=== PATIENT | female | born 2000 | race African-American/Black ===

== ENCOUNTER 2021-05-21 01:50 | Emergency (ER) | payer SELFPAY ==
--- NOTE | 2021-05-21 01:56 | ED Physician Documentation ---
PD HPI SKIN - Stated complaint Stated Complaint: HIVES - History obtained from History obtained from: Patient - History of Present Illness Timing - onset: How many hours ago (few), Today Timing - duration: Hours (few) Timing - details: Abrupt onset, Still present Location: Face, Neck, RUE, LUE. No: Bodywide Quality / character: Itchy, Swelling (patchy areas of swelling and tenderness neck/face/arms. Had dyed hair earlier in the day without symptoms then. No new meds/foods/etc. Recent new sexual partner few days ago without discharge nor vaginal pain. She presumes is related to hair dye. Itchy without hives on scalp.) Improved by: Benadryl (but only moderately better after an hour.) Associated symptoms: Facial swelling. No: Fever, Myalgias, Joint pain, Headache, Dyspnea, N/V/D Contributing factors: Other (dyed hair earlier in the day.). No: Exposed to me dication, Exposed to food Similar symptoms before: Has not had sx before Recently seen: Not recently seen Review of Systems Constitutional: denies: Fever, Chills Nose: denies: Rhinorrhea / runny nose, Congestion Throat: denies: Sore throat Respiratory: denies: Dyspnea, Cough, Wheezing GI: denies: Nausea, Vomiting, Diarrhea : denies: Dysuria, Discharge Skin: reports: Rash (hives the past few hours) PD PAST MEDICAL HISTORY - Past Medical History Past Medical History: No Cardiovascular: None Respiratory: None Neuro: None Endocrine/Autoimmune: None - Present Medications Home Medications: Ambulatory Orders Medication Instructions Recorded Confirmed Albuterol 2.5 mg INH Q4H PRN 05/21/21 05/21/21 Cetirizine [ZyrTEC] 10 mg PO BID #15 tablet 05/21/21 dexAMETHasone [Decadron] 4 mg PO DAILY #5 tablet 05/21/21 - Allergies Allergies/Adverse Reactions: Allergies Allergy/AdvReac Type Severity Reaction Status Date / Time No Known Drug Allergies Allergy Verified 05/21/21 02:00 PD ED PE NORMAL - Vitals Vital signs reviewed: Yes - General General: Alert and oriented X 3, Well developed/nourished - HEENT HEENT: Moist mucous membranes, Pharynx benign (no noted edema), Other (hair is primary red color. Mild redness of scalp generally. Face/back of neck and arms with patches of slightly raised swelling c/w hives. No vesicles. ) - Neck Neck: Supple, no meningeal sign, No adenopathy - Cardiac Cardiac: RRR, No murmur - Respiratory Respiratory: Clear bilaterally - Female Female : Deferred - Derm Derm: Normal color, Warm and dry - Neuro Neuro: Alert and oriented X 3, No motor deficit, Normal speech Results - Vitals Vitals: Vital Signs - 24 hr 05/21/21 05/21/21 01:58 02:38 Temperature 36.9 C 37.2 C Heart Rate 75 68 Respiratory 16 16 Rate Blood Pressure 132/80 H 117/73 O2 Saturation 99 100 Oxygen O2 Source Room air - Labs Labs: Laboratory Tests 05/21/21 02:29 C. glabrata (PCR) NEGATIVE C. krusei (PCR) NEGATIVE Qi species DNA NEGATIVE T. vaginalis (PCR) POSITIVE A Bact Vaginosis (PCR) POSITIVE A PD MEDICAL DECISION MAKING - ED course Complexity details: considered differential (area of hives would related to area closer to hair dye. Presume that is it. She is concerned about STDs without vaginal symptoms. Can have her self-swab. ), d/w patient Departure - Departure Disposition: 01 Home, Self Care Clinical Impression: Urticaria, acute, Concern about STD in female without diagnosis Condition: Stable Record reviewed to determine appropriate education?: Yes Instructions: ED Allergic Reaction General Other Prescriptions: dexAMETHasone [Decadron] 4 mg PO DAILY #5 tablet Cetirizine [ZyrTEC] 10 mg PO BID #15 tablet Comments: Use the Decadron steroid daily for several more days to outlast the reaction. Cetirizine antihistamine twice daily for a week or so. This is a long-acting antihistamine. Add Benadryl every 6 hours if needed for hives/itching in the short-term. You can use 25 to 50 mg every 6 hours if needed. I would anticipate improvement into tomorrow/later today and resolution over the next day or 2. Your testing for STIs will result in a day and will call you if there are any positive findings. You can also look up the results on the patient portal. Discharge Date/Time: 05/21/21 02:44
[2021-05-21] MEDS ORDERED: FAMOTIDINE 20 MG TABLET PO STA (02:07)
[2021-05-21] MEDS ORDERED: CHERRY SYRUP 10 ML UDC PO ONE (02:07)
[2021-05-21] MEDS ORDERED: DEXAMETHASONE 10 MG/ML VIAL PO STA (02:07)
[2021-05-21] MEDS ORDERED: CETIRIZINE 10 MG TABLET PO STA (02:07)
[2021-05-21 02:40] VITALS: BP 117/73
[2021-05-21 04:16] LABS: BACTERIAL VAGINOSIS DNA POSITIVE (NEGATIVE); CANDIDA GLABRATA DNA NEGATIVE (NEGATIVE); CANDIDA GROUP DNA NEGATIVE (NEGATIVE); CANDIDA KRUSEI DNA NEGATIVE (NEGATIVE); TRICHOMONAS VAGINALIS DNA POSITIVE (NEGATIVE)
--- NOTE | 2021-05-21 14:06 | ED Physician Documentation ---
ED Addendum - Addendum Addendum: 05/21/21 14:06 Tried to call patient with results of positive trichomoniasis and BV to call her in Flagyl 500 mg p.o. twice daily for 7 days. Her phone number was not working. I called her sister who did answer, I gave her the number to the ER to have the patient call us.
[2021-05-21 19:07] LABS: CHLAMYDIA TRACHOMATIS DNA POSITIVE (NEGATIVE); NEISSERIA GONORRHOEAE DNA POSITIVE (NEGATIVE); TRICHOMONAS VAGINALIS DNA POSITIVE (NEGATIVE)
== END 2021-05-21 02:44 | disposition home or self-care (01) ==
LOC: ED 01:50
DX: L50.9 Urticaria, unspecified (principal); Z11.3 Encounter for screening for infections with a predominantly sexual mode of transmission
CPT/HCPCS: 87481; 87491; 87591; 87661; 87801; 99283; 99284; A9270

== ENCOUNTER 2021-05-22 18:34 | Emergency (ER) | payer SELFPAY ==
[2021-05-22] MEDS ORDERED: cefTRIAXone 1 GM VIAL IM STA (18:54)
[2021-05-22] MEDS ORDERED: LIDOCAINE 1% 2 ML VIAL MC ONE (18:54)
[2021-05-22] MEDS ORDERED: metroNIDAZOLE 250 MG TABLET PO STA (18:54)
--- NOTE | 2021-05-22 18:57 | ED Physician Documentation ---
History of Present Illness - Stated complaint Stated Complaint: RECHECK - Chief complaint Chief Complaint: General - History obtained from History obtained from: Patient - History of Present Illness Timing: Today Pain level max: 0 Pain level now: 0 - Additonal information Additional information: Patient tested positive on her laboratory testing for bacterial vaginitis as well as gonorrhea and chlamydia. Patient call back to be treated for these results. Review of Systems Constitutional: denies: Fever, Chills GI: denies: Vomiting, Diarrhea : reports: Discharge Skin: denies: Rash Musculoskeletal: denies: Neck pain, Back pain Neurologic: denies: Headache PD PAST MEDICAL HISTORY - Past Medical History Cardiovascular: None Respiratory: None Neuro: None Endocrine/Autoimmune: None GI: None [employer]: None : None HEENT: None Psych: None Musculoskeletal: None Derm: None - Past Surgical History Past Surgical History: No - Present Medications Home Medications: Ambulatory Orders Medication Instructions Recorded Confirmed Albuterol 2.5 mg INH Q4H PRN 05/21/21 05/21/21 Cetirizine [ZyrTEC] 10 mg PO BID #15 tablet 05/21/21 dexAMETHasone [Decadron] 4 mg PO DAILY #5 tablet 05/21/21 Doxycycline Hyclate 100 mg PO BID #14 05/22/21 metroNIDAZOLE [Flagyl] 500 mg PO BID #14 tablet 05/22/21 - Allergies Allergies/Adverse Reactions: Allergies Allergy/AdvReac Type Severity Reaction Status Date / Time No Known Drug Allergies Allergy Verified 05/22/21 18:49 - Social History Does the pt smoke?: No Smoking Status: Never smoker Does the pt drink ETOH?: Yes Does the pt have substance abuse?: No - Immunizations Immunizations are current?: Yes - POLST Patient has POLST: No PD ED PE NORMAL - Vitals Vital signs reviewed: Yes - General General: Alert and oriented X 3, No acute distress - HEENT HEENT: Moist mucous membranes - Neck Neck: Supple, no meningeal sign - Cardiac Cardiac: RRR, Strong equal pulses - Respiratory Respiratory: No respiratory distress, Clear bilaterally - Abdomen Abdomen: Soft, Non tender, Non distended - Back Back: No CVA TTP, No spinal TTP - Derm Derm: Warm and dry - Extremities Extremities: No edema - Neuro Neuro: Alert and oriented X 3 Results - Vitals Vitals: Vital Signs - 24 hr 05/22/21 05/22/21 18:46 19:21 Temperature 36.2 C L 36.5 C Heart Rate 88 72 Respiratory 14 18 Rate Blood Pressure 133/74 H 140/68 H O2 Saturation 100 99 Oxygen O2 Source Room air PD MEDICAL DECISION MAKING - ED course Complexity details: reviewed old records, reviewed results, considered differential, d/w patient ED course: Patient treated for gonorrhea, chlamydia, bacterial vaginitis and Trichomonas. Patient is well-appearing, nontoxic. Afebrile. Given Rocephin, doxycycline and Flagyl. Recommend that she have her partners tested and treated. Patient counseled regarding signs and symptoms for which I believe and urgent re- evaluation would be necessary. Patient with good understanding of and agreement to plan and is comfortable going home at this time This document was made in part using voice recognition software. While efforts are made to proofread this document, sound alike and grammatical errors may occur. Also recommend an HIV test with her doctor Departure - Departure Disposition: 01 Home, Self Care Clinical Impression: Gonorrhea, Chlamydia, Bacterial vaginitis, Trichomoniasis of vagina Condition: Good Instructions: ED Chlamydia Female, ED Gonorrhea Female, ED Vaginosis Bacterial Follow-Up: your,doctor as needed [Other] Prescriptions: Doxycycline Hyclate 100 mg PO BID #14 metroNIDAZOLE [Flagyl] 500 mg PO BID #14 tablet Comments: You have tested positive today for trichomonas, bacterial vaginitis, gonorrhea and chlamydia. You are being treated for these. Any your sexual partners will need to be tested and treated as well. Return if you worsen. Take all medication until gone even if you are feeling better. Discharge Date/Time: 05/22/21 19:21
[2021-05-22 19:23] VITALS: BP 140/68
== END 2021-05-22 19:21 | disposition home or self-care (01) ==
LOC: ED 18:34
DX: N76.0 Acute vaginitis (principal); A54.9 Gonococcal infection, unspecified; A74.9 Chlamydial infection, unspecified; A59.01 Trichomonal vulvovaginitis
CPT/HCPCS: 96372; 99283; A9270